=== PATIENT | male | born 1975 | race Caucasian/White ===

== ENCOUNTER → 2024-02-27 | Day surgery (SDC) | payer BC ==
[~2024-02-27] MED LIST: ALLOPURINOL100 MG PO; COLCRYS0.6 MG PO; CRESTOR40 MG PO; LIDOCAINE HCL 2% LOCAL INJ 5 ML SDV VIAL INJ ONE; LOSARTAN POTASS25 MG PO; MIDAZOLAM HCL 2 MG/2 ML VIAL ONE; PROPOFOL IV EMULSION 10 MG/ML 20 ML VIAL ONE; PROPOFOL IV EMULSION 10 MG/ML 50 ML VIAL IV ONE
[2024-02-27] MEDS: LACTATED RINGER'S 1,000 ML ONE (09:46)
[2024-02-27 12:43] VITALS: TEMP 98.6
[2024-02-27 13:15] VITALS: BP 138/88; PULSE 78; RESP 16; O2SAT 98
== END | disposition home or self-care (01) ==
LOC: OR 09:18
PROVIDERS: ATTEND Internal Medicine Gastroenterology
DX: Z12.11 Encounter for screening for malignant neoplasm of colon (principal); K57.30 Diverticulosis of large intestine without perforation or abscess without bleeding; K64.8 Other hemorrhoids; I10 Essential (primary) hypertension; E78.5 Hyperlipidemia, unspecified; M10.9 Gout, unspecified; F32.A Depression, unspecified; M19.90 Unspecified osteoarthritis, unspecified site; Z71.3 Dietary counseling and surveillance; Z71.6 Tobacco abuse counseling; Z71.89 Other specified counseling; F17.290 Nicotine dependence, other tobacco product, uncomplicated; Z01.810 Encounter for preprocedural cardiovascular examination; Z79.899 Other long term (current) drug therapy; Z68.28 Body mass index [BMI] 28.0-28.9, adult
CPT/HCPCS: 45378; 93005; J2001; J2250; J2704 ×2; J7121